=== PATIENT | female | born 1985 | race Two or more races ===

== ENCOUNTER 2020-07-05 04:32 | Day surgery (SDC) | payer OTHER ==
[2020-07-05 08:05] VITALS: BMI 23.1
[2020-07-05] MEDS ORDERED: MIDAZOLAM HCL 2 MG/2 ML SINGLE DOSE VIAL ONE (09:31)
[2020-07-05] MEDS ORDERED: PROPOFOL 20 ML ONE (09:31)
[2020-07-05] MEDS ORDERED: NEOSTIGMINE METHYLSULFATE 0.5 MG/ML - 10 ML MDV ONE (09:33)
[2020-07-05] MEDS ORDERED: GLYCOPYRROLATE 0.2 MG/1 ML VIAL ONE (09:33)
[2020-07-05] MEDS ORDERED: ONDANSETRON 4 MG/2 ML VIAL IVPUSH PRN (11:31)
[2020-07-05] MEDS ORDERED: LACTATED RINGERS SOLUTION 1,000 ML IV SCH (11:45)
[2020-07-05 17:02] VITALS: BP 102/58; PULSE 71; TEMP 98
== END 2020-07-05 16:50 | disposition home or self-care (01) ==
LOC: JASU-SURG 04:32
PROVIDERS: ATTEND Obstetrics & Gynecology
PROC: 10D17ZZ Extraction of Products of Conception, Retained, Via Natural or Artificial Opening (ICD-10-PCS; principal; 2020-07-05 10:00)
DX: O02.1 Missed abortion (principal)
CPT/HCPCS: 88305-TC; 94760